=== PATIENT | female | born 1950 | race Caucasian/White ===

== ENCOUNTER 2020-10-07 12:42 | Emergency (ER) | payer MEDICARE ==
[~2020-10-07] VITALS: Ht 160 cm; Wt 63.6 kg
[2020-10-07 12:48] VITALS: BP 132/99
--- NOTE | 2020-10-07 13:19 | NUR ---
EDP AT BEDSIDE.
[2020-10-07] MEDS ORDERED: METHOCARBAMOL 1,000 MG in DEXTROSE 5% 100 ML IV ONE (13:30)
[2020-10-07] MEDS ORDERED: SODIUM CHLORIDE FLUSH 10ML SYR IVF ONE (13:30)
[2020-10-07] MEDS ORDERED: HYDROmorphone 2 MG/ML, 1ML IVPush PRN (13:30)
[2020-10-07] MEDS ORDERED: KETOROLAC 30 MG/1 ML IVPush ONE (13:30)
[2020-10-07] MEDS ORDERED: METHOCARBAMOL 750 MG TABLET ONE (13:33)
[2020-10-07] MEDS ORDERED: KETOROLAC 30 MG/1 ML ONE (13:33)
[2020-10-07] MEDS ORDERED: HYDROmorphone 1 MG/ML, 1ML INJ ONE (13:34)
--- NOTE | 2020-10-07 13:35 | NUR ---
PT REFUSING IV AND XRAY. PT STATES SHE WOULD JUST LIKE A SHOT AND RX TO GO HOME. EDP NOTIFIED. ORDER'S CHANGED ACCORDINGLY.
[2020-10-07] MEDS ORDERED: METHOCARBAMOL 500 MG TABLET ONE (13:37)
[2020-10-07] MEDS ORDERED: KETOROLAC 30 MG/1 ML IM ONE (14:00)
[2020-10-07] MEDS ORDERED: METHOCARBAMOL 500 MG TABLET PO ONE (14:00)
[2020-10-07] MEDS ORDERED: HYDROmorphone 1 MG/ML, 1ML INJ IM ONE (14:00)
== END 2020-10-07 15:15 | disposition home or self-care (01) ==
LOC: ED 14:30
DX: M54.41 Lumbago with sciatica, right side (principal); G89.29 Other chronic pain
CPT/HCPCS: 96372; 99284; J1170; J1885

== ENCOUNTER 2021-05-08 10:55 | Outpatient (CLI) | payer MEDICARE | END 2021-05-08 23:59 | disposition home or self-care (01) | LOC: CFH 10:55 | PROVIDERS: ATTEND Internal Medicine Cardiovascular Disease | DX: I25.10 Atherosclerotic heart disease of native coronary artery without angina pectoris (principal); E78.00 Pure hypercholesterolemia, unspecified; R06.02 Shortness of breath; I44.7 Left bundle-branch block, unspecified | CPT/HCPCS: 75571 ==